=== PATIENT | female | born 2000 | race African-American/Black ===

== ENCOUNTER 2021-04-23 09:12 | Emergency (ER) | payer SELFPAY ==
--- NOTE | ~2021-04-23 | XR_ITS ---
XR thoracic spine 3V 04/23/2021 10:31 Indication: Upper back pain Procedure: 3 views thoracic spine Comparison: No prior studies for comparison. Findings: Normal thoracic alignment. Vertebral body heights are maintained. No fracture, subluxation or dislocation. Pedicles intact. No paraspinal soft tissue abnormality. Impression: 1: No acute abnormality of the thoracic spine. Reviewed, dictated and finalized at location A. Impression: 1: No acute abnormality of the thoracic spine.
[2021-04-23 09:22] VITALS: BP 127/78; PULSE 94; RESP 20; TEMP 37.3; O2SAT 100
--- NOTE | 2021-04-23 10:20 | ED.GENADULT ---
HPI - General Adult General Chief complaint: Back Pain/Injury Stated complaint: BACK PAIN Time Seen by Provider: 04/23/21 10:07 Source: patient Mode of arrival: ambulatory Limitations: no limitations History of Present Illness HPI narrative: Patient presents for evaluation of back pain for the last week. She indicates pain started after a visit to [employer]. She cannot identify any specific injury. She states that pain is constant, aching, squeezing and rated 7/10. No radicular component. She has not taken any medications for pain. She denies any urinary symptoms. LMP just under 1 month ago. She states that there is no chance of as she has never been sexually active. No additional complaints or concerns. Related Data Home Medications Medication Instructions Recorded Confirmed No Home Medications 04/23/21 04/23/21 Allergies Allergy/AdvReac Type Severity Reaction Status Date / Time No Known Allergies Allergy Verified 04/23/21 09:32 Review of Systems Review of Systems: CONSTITUTIONAL: Denies fever, chills, or sweats. EYES: Denies visual changes, redness, or discharge. ENT: Denies rhinorrhea, congestion, sore throat, or otalgia. CARDIOVASCULAR: Denies chest pain, palpitations, or edema. RESPIRATORY: Denies cough or dyspnea. GASTROINTESTINAL: Denies abdominal pain, nausea, vomiting, or diarrhea. GENITOURINARY: Denies dysuria or hematuria. SKIN: Denies rash or itching. MUSCULOSKELETAL: Reports back pain. Denies joint pain or myalgia. NEUROLOGIC: Denies headache, numbness, dizziness, or weakness. PSYCHIATRIC: Denies anxiety or depression. [facility] Past Medical History Medical History (Updated 04/23/21 @ 11:05 by FAYE Benton, ) No pertinent past medical history Surgical History Surgical History No pertinent past surgical history Family History Family History Mother No pertinent past medical history Father No pertinent past medical history Social History Social History Smoking status: Never smoker Alcohol intake: never Substance use: never Living arrangements: with family Gender identity (if verbalized by the patient): Female Spiritual care concerns: No Exam Narrative: GENERAL: Well-appearing, well-nourished, and in no acute distress. HEAD: Normocephalic, atraumatic. EYES: PERRLA and EOMI. ENT: Nares clear, no rhinorrhea or epistaxis. Mucous membranes moist. Oropharynx without tonsillar hypertrophy exudate or other lesions. Bilateral TMs pearly barnhart nonbulging NECK: Supple. No adenopathy or masses. No carotid bruits or JVD CHEST: Clear to auscultation. No respiratory distress. No wheezes rales or rhonchi HEART: Regular rate and rhythm. No murmur heard. Normal peripheral pulses. ABDOMEN: Soft, nontender, nondistended, normal active bowel sounds. EXTREMITIES: Tenderness in midline and paraspinous muscles on the left of the thoracic spine. Normal range of motion. No edema. SKIN: Warm, dry, no rash. NEURO: No focal deficits. Alert and oriented x3. PSYCH: Normal mood and affect. Course Course Emergency Course: This is a 21-year-old female who presented with thoracic back pain. X-ray was negative. She declined analgesics in the emergency department. On reassessment, advised patient on necessity for follow-up. Will prescribe ibuprofen and Flexeril. Patient agreed with plan of care. Vital Signs Vital signs: Vital Signs Temperature 37.3 C 04/23/21 09:22 Pulse Rate 94 04/23/21 09:22 Respiratory Rate 20 04/23/21 09:22 Blood Pressure 127/78 04/23/21 09:22 Pulse Oximetry 100 04/23/21 09:22 Temperature 37.3 C 04/23/21 09:22 Pulse Rate 94 04/23/21 09:22 Respiratory Rate 20 04/23/21 09:22 Blood Pressure 127/78 04/23/21 09:22 Pulse Oximetry 100
[2021-04-23 11:16] VITALS: BP 121/72; PULSE 83; RESP 18; O2SAT 100
== END 2021-04-23 11:18 | disposition home or self-care (01) ==
PROVIDERS: Emergency Provider Nurse Practitioner; PCP Internal Medicine
DX: S29.019A Strain of muscle and tendon of unspecified wall of thorax, initial encounter (principal); X58.XXXA Exposure to other specified factors, initial encounter
CPT/HCPCS: 72072; 99283